=== PATIENT | male | born 1990 | race Asian ===

== ENCOUNTER 2022-08-17 09:45 | Emergency (ER) | payer OTHER ==
[~2022-08-17] VITALS: Ht 177.8 cm; Wt 105.2 kg
[2022-08-17 09:53] VITALS: BP_SYST 114
--- NOTE | 2022-08-17 10:10 | NUR ---
PT BIB SELF AWAKE, AWAKE AND ALERT AOX4. NO SOB OR DISTRESS. PT C/O COUGH AND LOWER BACK PAIN X 2 DAYS. PT DENIES N/V/D. PT DENIES HX AND SX. PT STATES BACK PAIN 08/16
--- NOTE | 2022-08-17 10:11 | NUR ---
MD DR COSBY AT BEDSIDE
--- NOTE | 2022-08-17 10:21 | NUR ---
COVID AND FLU SWAB SAMPLE COLLECTED, LABELED AND SENT TO LAB VIA EMT.
--- NOTE | 2022-08-17 10:40 | NUR ---
CHEST XRAY AT BEDSIDE
[2022-08-17] MEDS ORDERED: OSEL75CA PO (11:06)
[2022-08-17] MEDS ORDERED: IBUP-1969 PO (11:06)
[2022-08-17] MEDS ORDERED: D-ME118S48 PO (11:08)
--- NOTE | 2022-08-17 11:35 | NUR ---
Patient given written and verbal discharge instructions and verbalizes understanding. ER MD DR COSBY discussed with patient the results and treatment provided. Patient in stable condition. ID arm band removed. Rx of BROMED, MOTRIN, TAMIFLU given. Patient educated on pain management and to follow up with PMD. Pain Scale 4/10. Opportunity for questions provided and answered. Medication side effect fact sheet provided.
[2022-08-17 11:44] VITALS: BP_SYST 135
== END 2022-08-17 11:35 | disposition home or self-care (01) ==
LOC: SED 09:45
DX: J10.1 Influenza due to other identified influenza virus with other respiratory manifestations (principal); R05.9 Cough, unspecified; R09.81 Nasal congestion; Z79.899 Other long term (current) drug therapy; Z20.822 Contact with and (suspected) exposure to COVID-19
CPT/HCPCS: 36415; 71045; 99284

== ENCOUNTER 2023-01-07 13:30 | Emergency (ER) | payer OTHER ==
[~2023-01-07] VITALS: Ht 177.8 cm; Wt 99.8 kg
[~2023-01-07 13:30] MED LIST: D-ME118S48 PO; IBUP-1969 PO; OSEL75CA PO
[2023-01-07 14:00] VITALS: BP_SYST 127; PULSE 63; RESP 18; TEMP 97.4; O2SAT 98
== END 2023-01-07 18:30 | disposition left against medical advice (07) ==
LOC: SED 13:30
DX: S19.9XXD Unspecified injury of neck, subsequent encounter (principal); Z53.21 Procedure and treatment not carried out due to patient leaving prior to being seen by health care provider; X58.XXXD Exposure to other specified factors, subsequent encounter
CPT/HCPCS: 99281